=== PATIENT | male | born 1975 | race Caucasian/White ===

== ENCOUNTER 2018-09-27 10:08 | Emergency (ER) | payer OTHER ==
--- NOTE | 2018-09-27 11:00 | PDOC ---
History of Present Illness - General Chief Complaint: Eye Problem Stated Complaint: RT EYE PAIN Time Seen by Provider: 09/27/18 10:34 History Source: Patient Exam Limitations: Clinical Condition - History of Present Illness Initial Comments: 09/27/18 10:55 Patient with no significant past medical history present with complaint of right eye irritation and pain since yesterday with no trauma or injury to eye. Patient reported it is very itchy and painful. Reported using [id number] eyedrops without improvement. Denies blurry vision, change in vision. Denies contact lens use. Denies any other symptoms Timing/Duration: 24 hours Past History - Past Medical History Allergies/Adverse Reactions: Allergies Allergy/AdvReac Type Severity Reaction Status Date / Time No Known Allergies Allergy Verified 09/27/18 10:23 Home Medications: Ambulatory Orders Ketotifen Fumarate [Zaditor] 2 drop OP BID PRN 5 Days #1 bottle 09/27/18 COPD: No - Suicide/Smoking/Psychosocial Hx Smoking History: Never smoked Have you smoked in the past 12 months: No Information on smoking cessation initiated: Yes Hx Alcohol Use: No Drug/Substance Use Hx: No Review of Systems - Review of Systems Able to Perform ROS?: Yes Is the patient limited Italian proficient: No Constitutional: No: Weakness HEENTM: Yes: Symptoms Reported, See HPI, Eye Pain (right eye), Tearing. No: Blurred Vision, Recent change in vision, Double Vision, Cataracts, Ear Pain, Ocular Prothesis, Ear Discharge, Nose Pain, Nose Congestion, Tinnitus, Nose Bleeding, Hearing Loss, Throat Pain, Throat Swelling, Mouth Pain, Dental Problems, Difficulty Swallowing, Mouth Swelling, Other Respiratory: No: Symptoms reported, See HPI, Cough, Orthopnea, Shortness of Breath, SOB with Exertion, SOB at Rest, Stridor, Wheezing, Productive cough, Hemoptysis, Other Cardiac (ROS): No: Symptoms Reported, See HPI, Chest Pain, Edema, Irregular Heart Rate, Lightheadedness, Palpitations, Syncope, Chest Tightness, Other ABD/GI: No: Nausea, Vomiting Neurological: No: Headache, Weakness, Dizziness All Other Systems: Reviewed and Negative *Physical Exam - Vital Signs Last Vital Signs Temp Pulse Resp BP Pulse Ox 98.4 F 65 18 117/61 100 09/27/18 10:24 09/27/18 10:24 09/27/18 10:24 09/27/18 10:24 09/27/18 10:24 - Physical Exam Comments: 09/27/18 11:00 GENERAL: Well developed, well nourished. Awake and alert. No acute distress. HEENT: No foreign material seen on exam with fluorescein stain. Normocephalic, atraumatic. PERRLA, EOMI. No conjunctival pallor. Sclera are non-icteric. Moist mucous membranes. Oropharynx is clear. NECK: Supple. Full ROM. CARDIOVASCULAR: Regular rate and rhythm. No murmurs, rubs, or gallops. Distal pulses are 2+ and symmetric. PULMONARY: No evidence of respiratory distress. Lungs clear to auscultation bilaterally. No wheezing, rales or rhonchi. MUSCULOSKELETAL Normal range of motion at all joints. SKIN: Warm and dry. Normal capillary refill. No rashes. NEUROLOGICAL: Alert, awake, appropriate. Gait is normal without ataxia. PSYCHIATRIC: Cooperative. Good eye contact. Appropriate mood General Appearance: Yes: Nourished, Appropriately Dressed. No: Apparent Distress Medical Decision Making - Medical Decision Making 09/27/18 10:56 Patient with no significant past medical history present with complaint of right eye irritation and pain since yesterday with no trauma or injury to eye. Patient reported it is very itchy and painful. Reported using [id number] eyedrops without improvement. Denies blurry vision, change in vision. Denies contact lens use. Denies any other symptoms Exam significant for no conjunctiva erythema. No foreign object or seen in right eye on exam with fluorescein staining. Patient with mildly teary eyes. Symptoms likely ALLERGIC conjunctivitis. Patient sent to eyewash station to radiate eye. Patient be discharged home on Zaditor eyedrops for irritation with ophthalmology follow-up. 09/27/18 11:28 Patient feels better after eyewash. Patient stable for discharge *DC/Admit/Observation/Transfer Diagnosis at time of Disposition: Allergic conjunctivitis Qualifiers: Laterality: right Qualified Code(s): H10.11 - Acute atopic conjunctivitis, right eye - Discharge Dispostion Disposition: HOME Condition at time of disposition: Stable Decision to Admit order: No - Prescriptions Prescriptions: Ketotifen Fumarate [Zaditor] 2 drop OP BID PRN 5 Days #1 bottle PRN Reason: right eye irritation - Referrals Referrals: Nakul Vargas MD [Staff Physician] - - Patient Instructions Printed Discharge Instructions: DI for Conjunctivitis Additional Instructions: Use eyedrops as prescribed. No foreign object was seen in the eye on exam. Follow-up referred ophthalmology if symptoms persist for 2 days. - Post Discharge Activity
[2018-09-27 11:26] VITALS: BP 117/61; PULSE 65; TEMP 98.4; BMI 28.1
== END 2018-09-27 11:31 | disposition home or self-care (01) ==
LOC: JER 10:08
DX: H10.11 Acute atopic conjunctivitis, right eye (principal)
CPT/HCPCS: 99281-25